=== PATIENT | female | born 1950 | race Hispanic/Latino ===

== ENCOUNTER 2019-03-20 09:26 | Emergency (ER) | payer MEDICARE ==
[~2019-03-20] VITALS: Ht 160 cm; Wt 93.0 kg
--- NOTE | 2019-03-20 09:51 | NUR ---
PATIENT EDUCATED IN TRIAGE REGARDING CASE MANAGEMENT CONSULT BEING NEEDED FOR POTENTIAL HOSPICE EDUCATION/PAIN MANAGEMENT. PATIENT AGREES. UPON TRANSPORTED PATIENT TO ER 11, PATIENT NOW REFUSING TO SPEAK WITH ANYONE REGARDING HOSPICE/PAIN MANAGEMENT. PATIENT BROUGHT BACK TO TRIAGE AGAIN, FURTHER EDUCATION PROVIDED BY DR. NORTON AND RN, LISSETH RESTREPO, REGARDING OPTIONS. INFORMED THAT PATIENT HAS APPT TODAY WITH DR. WEBB'S OFFICE AND INSTRUCTED TO ATTEMPT INITIATION OF PAIN MANAGEMENT. PATIENT AGREES AND SIGNED OUT AMA FROM FURTHER MED SCREENING.
--- NOTE | 2019-03-20 10:47 | NUR ---
CALLED SWATCH MAKER TO TALK WITH PT REGARDING HOSPICE AND PAIN MANAGEMENT. PT END STAGE CANCER AND SEE'S DR SHEEHAN AND DOESN'T WANT CHEMO, RADIATION OR CANCER TREATMENT, BUT STATES PAIN IS MAKING HER UNCOMFORTABLE. PT TAKES, TYLENOL #3, NORCO, ULTRAM, REGULAR TYLENOL, GABAPENTIN. PT LEFT STATING SHE DOESNT WANT HOSPICE OR PAIN MANAGEMENT. PT SIGNED AMA FORM.
== END 2019-03-20 10:58 | disposition left against medical advice (07) ==
LOC: ER 10:34
DX: R52 Pain, unspecified (principal); C80.1 Malignant (primary) neoplasm, unspecified
CPT/HCPCS: 99282